=== PATIENT | male | born 1955 | race Caucasian/White ===

== ENCOUNTER → 2018-01-19 | Outpatient (CLI) | payer MEDICARE, BC | LOC: M PAIN 14:15 | DX: M96.1 Postlaminectomy syndrome, not elsewhere classified (principal); G89.29 Other chronic pain; I10 Essential (primary) hypertension; Z79.891 Long term (current) use of opiate analgesic; Z79.899 Other long term (current) drug therapy; Z88.8 Allergy status to other drugs, medicaments and biological substances | CPT/HCPCS: G0463 ==

== ENCOUNTER → 2018-02-17 | Outpatient (CLI) | payer MEDICARE, BC | LOC: M PAIN 10:45 | DX: M96.1 Postlaminectomy syndrome, not elsewhere classified (principal); G89.29 Other chronic pain; I10 Essential (primary) hypertension; Z79.891 Long term (current) use of opiate analgesic; Z79.899 Other long term (current) drug therapy; Z88.8 Allergy status to other drugs, medicaments and biological substances | CPT/HCPCS: G0463 ==

== ENCOUNTER → 2018-03-24 | Outpatient (CLI) | payer MEDICARE, BC | LOC: M PAIN 10:45 | DX: M96.1 Postlaminectomy syndrome, not elsewhere classified (principal); I10 Essential (primary) hypertension; Z79.891 Long term (current) use of opiate analgesic; Z79.899 Other long term (current) drug therapy; Z88.8 Allergy status to other drugs, medicaments and biological substances | CPT/HCPCS: G0463 ==

== ENCOUNTER → 2018-04-27 | Outpatient (CLI) | payer MEDICARE, BC | LOC: M PAIN 11:15 | DX: M96.1 Postlaminectomy syndrome, not elsewhere classified (principal); I10 Essential (primary) hypertension; Z79.891 Long term (current) use of opiate analgesic; Z79.899 Other long term (current) drug therapy; Z88.8 Allergy status to other drugs, medicaments and biological substances | CPT/HCPCS: G0463 ==

== ENCOUNTER → 2019-01-19 | Outpatient (CLI) | payer MEDICARE, BC ==
[~2019-01-19] MED LIST: ADVA230A INH; AMBI5TAB OR; CALC600T10; CALCIUM NASAL SPRAY; CELE1CAP4; CELE1CAP4 PO; HYDR25TA6 PO; LYRI75CA; MAXA10TA17 PO; MAXA5TAB; MICA40TA; OPAN10TA16; OPAN10TA16 PO; OXYC10TA56; OXYC40TA19 OR; PERC5TAB8 PO; SOMA350T OR; SPIR1CAP IN; VITACAP31 PO; VITAMIN D50000 UNT; ZEBE1TAB PO; ZEBE5TAB; [UNRECOGNIZED DRUG - CODE] PO; amrix PO; lisinopril/hctz OR
--- NOTE | 2019-02-07 01:12 | ECWPNPC ---
PATIENT NAME: JEOVANY BOWIE : 1955 GENDER: MALE VISIT DATE: 01/19/2019 DISCHARGE DATE: 01/19/19 1024 VISIT LOCKED DATE TIME: PHYSICIAN: BLAIR PEREZ RESOURCE: BLAIR PEREZ REASON FOR APPOINTMENT 1. LOW BACK PER LB HISTORY OF PRESENT ILLNESS HISTORY OF PRESENT ILLNESS: HERE FOR MEDICINE MANAGEMENT OF CHRONIC PAIN ASSOCIATED WITH POST LAMINECTOMY SYNDROME.HE IS BACK FROM [place] WHERE HE WAS BEING MANAGED BY PAIN MANAGEMENT.THEY HAVE BEEN REDUCING HIS PAIN MEDICATION IN ATTEMPTS TO REDUCE MORPHINE MEQ DAILY EXPOSURE.HE FEELS MEDICATION LOWERING WAS GOING WELL AND HE HAS REDUCED AMOUNT TAKING DAILY CONSIDERABLY BUT THIS LAST REDUCTION WAS DRAMATIC AND HE WAS SUFFERING .WE SET HIM UP ON A SLIGHTLY DIFFERENT REGIMEN AND HE IS DOING MUCH BETTER AT TODAYS VISIT.RATING PAIN VAS 4/10.REPORTING IMPROVED ACTIVITY TOLERANCE OVER THE PAST MONTH. PAIN THE PATIENT DESCRIBES THE PAIN... THE PATIENT DESCRIBES THE PAIN... FALL RISK SCREENING: SCREENING :NO FALLS REPORTED IN THE LAST YEAR CURRENT MEDICATIONS TAKING MAXALT 10 MG TABLET 1 TABLET NEEDED ONE TIME ORALLY ONCE A DAY TAKING LISINOPRIL-HYDROCHLOROTHIAZIDE 20-12.5 MG TABLET 2 TABLET ORALLY BID TAKING BISOPROLOL FUMARATE 5 MG TABLET 1 TABLET ORALLY ONCE A DAY TAKING METHOCARBAMOL 750 MG TABLET 1 TABLET ORALLY EVERY 8 HRS NEEDED TAKING PAROXETINE HCL 10 MG TABLET 1 TABLET IN THE MORNING ORALLY ONCE A DAY TAKING OXYCODONE HCL 20 MG TABLET 1 TAB ORALLY Q 8 HOURS PRN MDD3 TAKING MORPHINE SULFATE ER 15 MG TABLET EXTENDED RELEASE 12 HOUR 1 TABLET ORALLY EVERY 8 HRS NOT-TAKING MELOXICAM 7.5 MG TABLET 1 TABLET ORALLY ONCE A DAY NOT-TAKING OXYCODONE HCL ER 20 MG TABLET ER 12 HOUR ABUSE-DETERRENT 1 TABLET ORALLY Q8H MDD3 60 DAY SUPPLY CAT D CHRONIC PAIN NOT-TAKING ROXICODONE 30 MG TABLET 1 TABLET NEEDED ORALLY Q8H PRN PAIN MDD3 #82 PILLS SHOULD LAST 30 DAYS, NOTES: DUPLICATE NOT-TAKING OXYCONTIN 20 MG TABLET EXTENDED RELEASE 12 HOUR 1 TABLET ORALLY TID MDD3 NOT-TAKING ZEBETA 5 MG TABLET 1 TABLET ORALLY ONCE A DAY NOT-TAKING SPIRIVA HANDIHALER 18 MCG CAPSULE 1 CAPSULE INHALATION ONCE A DAY NOT-TAKING SOMA 350 MG TABLET 1 TABLET NEEDED ORALLY Q8H PRN MDD3 3MOS. SUPPLY CAT. D CHRONIC PAIN NOT-TAKING OXYCODONE HCL ER 40 MG TABLET ER 12 HOUR ABUSE-DETERRENT 1 TABLET ORALLY Q8H TID MDD3 THREE MOS SUPPLY CAT.D CHRONIC PAIN NOT-TAKING ADVAIR HFA 230-21 MCG/ACT AEROSOL 2 PUFFS INHALATION TWICE A DAY DISCONTINUED MS CONTIN 15 MG TABLET EXTENDED RELEASE 1 TABLET ORALLY Q8H MDD3 MEDICATION LIST REVIEWED AND RECONCILED WITH THE PATIENT PAST MEDICAL HISTORY HYPERTENSION PARALYZED DIAPHRAGM CHRONIC BACK PAIN ALLERGIES METAXALONE: RASH - ALLERGY CYCLOBENZAPRINE HCL: SEDATION - SIDE EFFECTS SURGICAL HISTORY BACK SURGERY 2008 SHOULD AND NECK SURGERY 2006 FAMILY HISTORY FATHER: MOTHER: 44 YRS 1 BROTHER(S) . 2 SON(S) . DID NOT KNOW HIS FATHER.MOTHER OF ASPHYXIATION OF VOMITBROTHER- LIVER CANCER METSSON- BACK ISSUES. SOCIAL HISTORY GENERAL: TOBACCO USE ARE YOU A: NONSMOKER. PAIN CLINIC PFS, CLERGY, PUBLIC HEALTH REFERRALS PFS REFERRAL NEEDED?NO CLERGY REFERRAL NEEDED?NO PUBLIC HEALTH REFERRAL NEEDED?NO WAS THE PROVIDER NOTIFIED OF ANY PERTINENT INFO?YES HAS THE PATIENT BEEN EDUCATED REGARDING HIS/HER PLAN OF CARE?YES HAS THE PATIENT BEEN EDUCATED REGARDING PAIN, THE RISK FOR PAIN, THE IMPORTANCE OF EFFECTIVE PAIN MANAGEMENT, AND THE PAIN ASSESSMENT PROCESS?YES ADVANCE DIRECTIVE ADVANCE DIRECTIVE DISCUSSED WITH PATIENT:YES PT DOES NOT WANT INFO AT THIS TIME [employer] [id number] MORMONISM LANGUAGE LANGUAGES SPOKEN:[place] LEARNING BARRIERS / SPECIAL NEEDS ABILITY TO UNDERSTAND VERBAL INSTRUCTIONS AVERAGE , ABILITY TO UNDERSTAND WRITTEN INSTRUCTIONS AVERAGE , KNOWLEDGE OF EDUCATIONAL NEEDS/TREATMENT PLAN AVERAGE , JAINISM? NO , LEARNING PREFERENCE NO PREFERENCE , ORIENTED TO PLAN OF CARE: PATIENT , PAIN MANAGEMENT PATIENT. REVIEWED WITH PT 04/27/18 1216 BVREVIEWED WITH PT 12/22/18 09 LAS. HOSPITALIZATION/MAJOR DIAGNOSTIC PROCEDURE NO HOSPITALIZATION HISTORY. REVIEW OF SYSTEMS REVIEWED BY: PROVIDER: BLAIR HARDING . CONSTITUTIONAL: ANY CHANGE IN YOUR MEDICAL CONDITION? NO . CHILLS NO . FEVER NO . INFECTION: DO YOU HAVE NEW INFECTIONS? NO . DO YOU HAVE HISTORY OF MRSA? NO . MUSCULOSKELETAL: ANY NEW PATTERNS OF PAIN OR NUMBNESS? NO . GASTROENTEROLOGY: ANY NEW CHANGE IN BOWEL CONTROL? NO . GENITOURINARY: ANY NEW CHANGE IN BLADDER CONTROL? NO . IS THERE A CHANCE YOU COULD BE ? NO . HEMATOLOGY/LYMPH: DO YOU TAKE ANY BLOOD THINNERS? (FOR EXAMPLE- COUMADIN, PLAVIX, AGGRENOX, PLATEL, PRADAXA, OR XARELTO) NO . WHEN WAS YOUR LAST DOSE? DATE: TIME: . NEUROLOGY: HAVE YOU FALLEN IN THE PAST 12 MONTHS? YES, PRIOR TO LAST VISIT . ANY NEW EXTREMITY NUMBNESS OR WEAKNESS? NO . CARDIOLOGY: DO YOU HAVE A PACEMAKER OR DEFIBRILLATOR? NO . RESPIRATORY: HAVE YOU BEEN SICK IN THE PAST WEEK? YES, RELOCATED FROM [place], WEATHER CHANGE URI . FEVER NO . FLU LIKE SYMPTOMS? NO . COUGH NO . INTEGUMENTARY: DO YOU HAVE ANY RASHES OR OPEN SORES? NO . ALLERGIC/IMMUNO: ARE YOU ALLERGIC TO IV DYE? NO . ANY NEW ALLERGIES? NO . PSYCHIATRIC: DO YOU HAVE THOUGHTS OF HURTING YOURSELF OR SOMEONE ELSE? NO . ARE YOU ABUSED, NEGLECTED, OR IN AN UNSAFE ENVIRONMENT? NO . ENDOCRINOLOGY: ARE YOU DIABETIC? NO . OTHER: DO YOU NEED ANY PRESCRIPTIONS? YES, MORPHINE, OXY, METHO . IF YES, PLEASE LIST: ____ . ANY NEW PROBLEMS WITH YOUR MEDICATIONS? NO . WHEN DID YOU LAST EAT? ____ . WHEN DID YOU LAST DRINK? ____ . WHAT DID YOU LAST DRINK? ____ . NAME OF PERSON DRIVING YOU HOME? ____ . DO YOU HAVE ANY OTHER QUESTIONS OR CONCERNS NO . VITAL SIGNS WT 246 LBS, HT 66 IN, BMI 39.70 INDEX, BP 170/87 MM HG, HR 61 /MIN, RR 16 /MIN, TEMP 97.9 F, OXYGEN SAT % 95, REVIEWED BY: EM. EXAMINATION GENERAL EXAMINATION: LUNGS:WHEEZING WITH DIMINISHED BREATH SOUNDS ALL LOBES BILAT.. HEART:HEART RATE REGULAR. MUSCULOSKELETAL:*, PALPATION: POSITIVE FOR PAIN OVER L/S SPINE. POSITIVE FOR PAIN OVER L/S PARSPINALS. ASSESSMENTS POST LAMINECTOMY SYNDROME - M96.1 (PRIMARY) TREATMENT POST LAMINECTOMY SYNDROME REFILL METHOCARBAMOL TABLET, 750 MG, 1 TABLET, ORALLY, 2X PER DAY IF NEEDED, 30 DAY(S), 30, REFILLS 2 REFILL OXYCODONE HCL TABLET, 20 MG, 1 TAB, ORALLY, Q 8 HOURS PRN MDD3, 30 DAY(S), 90, REFILLS 0 REFILL MORPHINE SULFATE ER TABLET EXTENDED RELEASE 12 HOUR, 15 MG, 1 TABLET, ORALLY, EVERY 8 HRS, 30 DAY(S), 90 TABLET, REFILLS 0 REFILL MS CONTIN TABLET EXTENDED RELEASE, 15 MG, 1 TABLET, ORALLY, Q8H MDD3, 30 DAY(S), 90, REFILLS 0 NOTES: ISTOP REGISTRY REVIEWED AND DEMONSTRATES COMPLLIANCE. (REF # [id number] ) BRINGS IN MEDICATIONS WHICH IS APPROPRIATE FOR WHAT WAS DISPENSED. RECENT URINE TOXICOLOGY REVIEWED. NO UNAUTHORIZED MEDICATIONS. NO ILLICIT SUBSTANCES AND PRESCRIBED MEDICATIONS WERE PRESENT. URINE TOX TODAY, RISKS AND BENEFITS OF NARCOTIC/OPIOD MEDICATIONS WERE REVIEWED WITH PATIENT - THIS INCLUDES BUT IS NOT LIMITED TO RISK OF DEPENDANCE/DEVELOPMENT OF ADDICTION, MOOD DISTURBANCE AND DEPRESSION, OSTEOPOROSIS, HORMONAL AND LABIDAL CHANGES, RESPIRATORY DEPRESSION AND . PATIENT IS ADVISED NOT TO DRIVE OR DRINK ALCOHOL WHILE ON THESE MEDICATIONS. PROCEDURE CODES FA211 ESTABILISHED PATIENT [facility] CHARGE DISPOSITION & COMMUNICATION FOLLOW UP 4-6WKS ELECTRONICALLY SIGNED BY MEHDI MARROQUIN ON 02/06/2019 AT 07:34 AM EDT DISCLAIMER : THIS IS A VISIT SUMMARY EXTRACTED FROM THE ECLINICALWORKS CHART. IT IS NOT A COPY OF THE [employer]CL[employer]KS PROGRESS NOTE. MONA
== END ==
LOC: M PAIN 09:00
PROVIDERS: ATTEND Nurse Practitioner Family
DX: M96.1 Postlaminectomy syndrome, not elsewhere classified (principal); G89.29 Other chronic pain; I10 Essential (primary) hypertension; Z79.891 Long term (current) use of opiate analgesic; Z79.899 Other long term (current) drug therapy; Z88.8 Allergy status to other drugs, medicaments and biological substances

== ENCOUNTER → 2019-02-21 | Outpatient (CLI) | payer MEDICARE, BC ==
--- NOTE | 2019-03-07 01:48 | ECWPNPC ---
PATIENT NAME: JEOVANY BOWIE : 1955 GENDER: MALE VISIT DATE: 02/21/2019 DISCHARGE DATE: 02/21/19 1240 VISIT LOCKED DATE TIME: PHYSICIAN: BLAIR PEREZ RESOURCE: BLAIR PEREZ REASON FOR APPOINTMENT 1. 4-6WKS PER BLAIR HISTORY OF PRESENT ILLNESS HISTORY OF PRESENT ILLNESS: HERE FOR MEDICINE MANAGEMENT OF CHRONIC PAIN ASSOCIATED WITH POST LAMINECTOMY SYNDROME.RATING PAIN VAS 6/10.REPORTING SLIGHT INCREASE INPAIN DUE TO INCREASE ACTIVITY OVER THE PAST MONTH.OVERALL DOING WELL WITH CURRENT CHRONIC PAIN MEDICATION. PAIN THE PATIENT DESCRIBES THE PAIN... THE PATIENT DESCRIBES THE PAIN... THE PATIENT DESCRIBES THE PAIN... FALL RISK SCREENING: SCREENING :NO FALLS REPORTED IN THE LAST YEAR CURRENT MEDICATIONS TAKING METHOCARBAMOL 750 MG TABLET 1 TABLET ORALLY 2X PER DAY IF NEEDED TAKING MS CONTIN 15 MG TABLET EXTENDED RELEASE 1 TABLET ORALLY Q8H MDD3 TAKING MAXALT 10 MG TABLET 1 TABLET NEEDED ONE TIME ORALLY ONCE A DAY TAKING LISINOPRIL-HYDROCHLOROTHIAZIDE 20-12.5 MG TABLET 2 TABLET ORALLY BID TAKING BISOPROLOL FUMARATE 5 MG TABLET 1 TABLET ORALLY ONCE A DAY TAKING PAROXETINE HCL 10 MG TABLET 1 TABLET IN THE MORNING ORALLY ONCE A DAY TAKING OXYCODONE HCL 20 MG TABLET 1 TAB ORALLY Q 8 HOURS PRN MDD3 NOT-TAKING MELOXICAM 7.5 MG TABLET 1 TABLET ORALLY ONCE A DAY NOT-TAKING OXYCODONE HCL ER 20 MG TABLET ER 12 HOUR ABUSE-DETERRENT 1 TABLET ORALLY Q8H MDD3 60 DAY SUPPLY CAT D CHRONIC PAIN NOT-TAKING ROXICODONE 30 MG TABLET 1 TABLET NEEDED ORALLY Q8H PRN PAIN MDD3 #82 PILLS SHOULD LAST 30 DAYS, NOTES: DUPLICATE NOT-TAKING OXYCONTIN 20 MG TABLET EXTENDED RELEASE 12 HOUR 1 TABLET ORALLY TID MDD3 NOT-TAKING ZEBETA 5 MG TABLET 1 TABLET ORALLY ONCE A DAY NOT-TAKING SPIRIVA HANDIHALER 18 MCG CAPSULE 1 CAPSULE INHALATION ONCE A DAY NOT-TAKING SOMA 350 MG TABLET 1 TABLET NEEDED ORALLY Q8H PRN MDD3 3MOS. SUPPLY CAT. D CHRONIC PAIN NOT-TAKING OXYCODONE HCL ER 40 MG TABLET ER 12 HOUR ABUSE-DETERRENT 1 TABLET ORALLY Q8H TID MDD3 THREE MOS SUPPLY CAT.D CHRONIC PAIN NOT-TAKING ADVAIR HFA 230-21 MCG/ACT AEROSOL 2 PUFFS INHALATION TWICE A DAY DISCONTINUED MORPHINE SULFATE ER 15 MG TABLET EXTENDED RELEASE 1 TABLET EVERY 8 HOURS ORALLY EVERY 8 HOURS MDD=3 MEDICATION LIST REVIEWED AND RECONCILED WITH THE PATIENT PAST MEDICAL HISTORY HYPERTENSION PARALYZED DIAPHRAGM CHRONIC BACK PAIN BENIGN LUNG MASS NOT SURE WHICH LUNG ALLERGIES METAXALONE: RASH - ALLERGY CYCLOBENZAPRINE HCL: SEDATION - SIDE EFFECTS SURGICAL HISTORY BACK SURGERY 2007 SHOULD AND NECK SURGERY 2006 FAMILY HISTORY FATHER: MOTHER: 44 YRS 1 BROTHER(S) . 2 SON(S) . DID NOT KNOW HIS FATHER.MOTHER OF ASPHYXIATION OF VOMITBROTHER- LIVER CANCER METS, 05/2018SON- BACK ISSUES. SOCIAL HISTORY GENERAL: TOBACCO USE ARE YOU A: NONSMOKER. PAIN CLINIC PFS, CLERGY, PUBLIC HEALTH REFERRALS PFS REFERRAL NEEDED?NO CLERGY REFERRAL NEEDED?NO PUBLIC HEALTH REFERRAL NEEDED?NO WAS THE PROVIDER NOTIFIED OF ANY PERTINENT INFO?YES HAS THE PATIENT BEEN EDUCATED REGARDING HIS/HER PLAN OF CARE?YES HAS THE PATIENT BEEN EDUCATED REGARDING PAIN, THE RISK FOR PAIN, THE IMPORTANCE OF EFFECTIVE PAIN MANAGEMENT, AND THE PAIN ASSESSMENT PROCESS?YES ADVANCE DIRECTIVE ADVANCE DIRECTIVE DISCUSSED WITH PATIENT:YES PT DOES NOT WANT INFO AT THIS TIME [employer] [id number] ORIENTAL [employer] LANGUAGE LANGUAGES SPOKEN:GUATEMALAN LEARNING BARRIERS / SPECIAL NEEDS ABILITY TO UNDERSTAND VERBAL INSTRUCTIONS AVERAGE , ABILITY TO UNDERSTAND WRITTEN INSTRUCTIONS AVERAGE , KNOWLEDGE OF EDUCATIONAL NEEDS/TREATMENT PLAN AVERAGE , JAIN? NO , LEARNING PREFERENCE NO PREFERENCE , ORIENTED TO PLAN OF CARE: PATIENT , PAIN MANAGEMENT PATIENT. REVIEWED WITH PT 04/27/18 1216 BVREVIEWED WITH PT 12/22/18 0945 LAS. HOSPITALIZATION/MAJOR DIAGNOSTIC PROCEDURE NO HOSPITALIZATION HISTORY. REVIEW OF SYSTEMS REVIEWED BY: PROVIDER: BLAIR HARDING . CONSTITUTIONAL: ANY CHANGE IN YOUR MEDICAL CONDITION? NO . CHILLS NO . FEVER NO . INFECTION: DO YOU HAVE NEW INFECTIONS? NO . DO YOU HAVE HISTORY OF MRSA? NO . MUSCULOSKELETAL: ANY NEW PATTERNS OF PAIN OR NUMBNESS? NO . GASTROENTEROLOGY: ANY NEW CHANGE IN BOWEL CONTROL? NO . GENITOURINARY: ANY NEW CHANGE IN BLADDER CONTROL? NO . IS THERE A CHANCE YOU COULD BE ? NO . HEMATOLOGY/LYMPH: DO YOU TAKE ANY BLOOD THINNERS? (FOR EXAMPLE- COUMADIN, PLAVIX, AGGRENOX, PLATEL, PRADAXA, OR XARELTO) NO . WHEN WAS YOUR LAST DOSE? DATE: TIME: . NEUROLOGY: HAVE YOU FALLEN IN THE PAST 12 MONTHS? NO . ANY NEW EXTREMITY NUMBNESS OR WEAKNESS? NO . CARDIOLOGY: DO YOU HAVE A PACEMAKER OR DEFIBRILLATOR? NO . RESPIRATORY: HAVE YOU BEEN SICK IN THE PAST WEEK? NO . FEVER NO . FLU LIKE SYMPTOMS? NO . COUGH NO . INTEGUMENTARY: DO YOU HAVE ANY RASHES OR OPEN SORES? NO . ALLERGIC/IMMUNO: ARE YOU ALLERGIC TO IV DYE? NO . ANY NEW ALLERGIES? NO . PSYCHIATRIC: DO YOU HAVE THOUGHTS OF HURTING YOURSELF OR SOMEONE ELSE? NO . ARE YOU ABUSED, NEGLECTED, OR IN AN UNSAFE ENVIRONMENT? NO . ENDOCRINOLOGY: ARE YOU DIABETIC? NO . OTHER: DO YOU NEED ANY PRESCRIPTIONS? NO . IF YES, PLEASE LIST: ____ . ANY NEW PROBLEMS WITH YOUR MEDICATIONS? NO . WHEN DID YOU LAST EAT? ____ . WHEN DID YOU LAST DRINK? ____ . WHAT DID YOU LAST DRINK? ____ . NAME OF PERSON DRIVING YOU HOME? ____ . DO YOU HAVE ANY OTHER QUESTIONS OR CONCERNS NO . VITAL SIGNS WT 247.6 LBS, HT 66 IN, BMI 39.96 INDEX, BP 205/88 MM HG, REPEAT BP 186/89 MM HG, HR 60 /MIN, RR 18 /MIN, TEMP 98.3 F, OXYGEN SAT % 94%, NA INITIALS SC 11:59, REVIEWED BY: RU LET PT REST BEFORE TAKING HIS BP AGAIN. EXAMINATION GENERAL EXAMINATION: LUNGS:WHEEZING WITH DIMINISHED BREATH SOUNDS ALL LOBES BILAT.. HEART:HEART RATE REGULAR. MUSCULOSKELETAL:*, PALPATION: POSITIVE FOR PAIN OVER L/S SPINE. POSITIVE FOR PAIN OVER L/S PARSPINALS. ASSESSMENTS POST LAMINECTOMY SYNDROME - M96.1 (PRIMARY) TREATMENT POST LAMINECTOMY SYNDROME REFILL METHOCARBAMOL TABLET, 750 MG, 1 TABLET, ORALLY, 2X PER DAY IF NEEDED, 30 DAY(S), 30, REFILLS 2 REFILL MS CONTIN TABLET EXTENDED RELEASE, 15 MG, 1 TABLET, ORALLY, Q8H MDD3, 30 DAY(S), 90, REFILLS 0 REFILL OXYCODONE HCL TABLET, 20 MG, 1 TAB, ORALLY, Q 8 HOURS PRN MDD3, 30 DAY(S), 90, REFILLS 0 NOTES: ISTOP REGISTRY REVIEWED AND DEMONSTRATES COMPLLIANCE. BRINGS IN MEDICATIONS WHICH IS APPROPRIATE FOR WHAT WAS DISPENSED. RECENT URINE TOXICOLOGY REVIEWED. NO UNAUTHORIZED MEDICATIONS. NO ILLICIT SUBSTANCES AND PRESCRIBED MEDICATIONS WERE PRESENT. , [facility] NARCOTIC AGREEMENT WAS REVIEWED UPDATEDAND SIGNED TODAY BY THE PATIENT. SEE ATTACHED DOCUMENT FOR FULL DETAILS; SPECIFIC ISSUES WERE REVIEWED: 1) KEEP PAIN MEDS IN THEIR ORIGINAL BOTTLES AND ANY WEEKLY PLANNERS ARE TO BE BROUGHT TO THE PAIN CENTER AT EVERY VISIT. 2) THE PATIENT IS NOT TO INCREASE DOSING OR TIMING OF THEIR PAIN MEDICATION WITHOUT SPECIFIC DIRECTION OF THEIR PAIN CENTERPROVIDER (NOT ER OR OTHER PROVIDERS). 3) ALL PAIN MEDS ARE TO BE KEPT SECURED, IN A LOCKED BOX. 4) NO PAIN MEDS ARE TO BE SHARED WITH ANY OTHER PERSON FOR ANY REASON. 5) NO PAIN MEDS MAY BE TAKEN FROM ANY FRIENDS OR RELATIVES FOR ANY REASON 6) NO MEDS OR SUBSTANCES WHICH ARE NOT LEGAL ARE TO BE USED- NO MARIJUANA, NO COCAINE, AMPHETAMINES, HEROIN, OR OTHERS ARE EVER TO BE USED. 7)URINE TESTING IS DONE TO ACCOUNT FOR MEDS AND SUBSTANCES BEING TAKEN AND WILL BE DONE RANDOMLY. PROCEDURE CODES FA211 ESTABILISHED PATIENT [facility] CHARGE DISPOSITION & COMMUNICATION FOLLOW UP 2 MONTHS ELECTRONICALLY SIGNED BY MEHDI MARROQUIN ON 03/06/2019 AT 09:11 AM EDT DISCLAIMER : THIS IS A VISIT SUMMARY EXTRACTED FROM THE ECLINICALWORKS CHART. IT IS NOT A COPY OF THE ECLINICALWORKS PROGRESS NOTE. MONA
== END ==
LOC: M PAIN 11:45
PROVIDERS: ATTEND Nurse Practitioner Family
DX: M96.1 Postlaminectomy syndrome, not elsewhere classified (principal); I10 Essential (primary) hypertension; Z79.891 Long term (current) use of opiate analgesic; Z79.899 Other long term (current) drug therapy; Z88.8 Allergy status to other drugs, medicaments and biological substances

== ENCOUNTER → 2019-04-18 | Outpatient (CLI) | payer MEDICARE, BC ==
--- NOTE | 2019-05-03 02:01 | ECWPNPC ---
PATIENT NAME: JEOVANY BOWIE : 1955 GENDER: MALE VISIT DATE: 04/18/2019 DISCHARGE DATE: 04/18/19 1256 VISIT LOCKED DATE TIME: PHYSICIAN: BLAIR PEREZ RESOURCE: BLAIR PEREZ REASON FOR APPOINTMENT 1. MEDICARE/BACK MEDS HISTORY OF PRESENT ILLNESS HISTORY OF PRESENT ILLNESS: HERE FOR MEDICINE MANAGEMENT OF CHRONIC PAIN ASSOCIATED WITH POST LAMINECTOMY SYNDROME.RATING PAIN VAS 7/10.OVERALL DOING WELL WITH CURRENT CHRONIC PAIN MEDICATION. PAIN THE PATIENT DESCRIBES THE PAIN... THE PATIENT DESCRIBES THE PAIN... THE PATIENT DESCRIBES THE PAIN... THE PATIENT DESCRIBES THE PAIN... FALL RISK SCREENING: SCREENING :NO FALLS REPORTED IN THE LAST YEAR CURRENT MEDICATIONS TAKING MAXALT 10 MG TABLET 1 TABLET NEEDED ONE TIME ORALLY ONCE A DAY TAKING LISINOPRIL-HYDROCHLOROTHIAZIDE 20-12.5 MG TABLET 2 TABLET ORALLY BID TAKING BISOPROLOL FUMARATE 5 MG TABLET 1 TABLET ORALLY ONCE A DAY TAKING PAROXETINE HCL 10 MG TABLET 1 TABLET IN THE MORNING ORALLY ONCE A DAY TAKING METHOCARBAMOL 750 MG TABLET 1 TABLET ORALLY 2X PER DAY IF NEEDED TAKING MS CONTIN 15 MG TABLET EXTENDED RELEASE 1 TABLET ORALLY Q8H MDD3 TAKING OXYCODONE HCL 20 MG TABLET 1 TAB ORALLY Q 8 HOURS PRN MDD3 NOT-TAKING MELOXICAM 7.5 MG TABLET 1 TABLET ORALLY ONCE A DAY NOT-TAKING OXYCODONE HCL ER 20 MG TABLET ER 12 HOUR ABUSE-DETERRENT 1 TABLET ORALLY Q8H MDD3 60 DAY SUPPLY CAT D CHRONIC PAIN NOT-TAKING ROXICODONE 30 MG TABLET 1 TABLET NEEDED ORALLY Q8H PRN PAIN MDD3 #82 PILLS SHOULD LAST 30 DAYS, NOTES: DUPLICATE NOT-TAKING OXYCONTIN 20 MG TABLET EXTENDED RELEASE 12 HOUR 1 TABLET ORALLY TID MDD3 NOT-TAKING ZEBETA 5 MG TABLET 1 TABLET ORALLY ONCE A DAY NOT-TAKING SPIRIVA HANDIHALER 18 MCG CAPSULE 1 CAPSULE INHALATION ONCE A DAY NOT-TAKING SOMA 350 MG TABLET 1 TABLET NEEDED ORALLY Q8H PRN MDD3 3MOS. SUPPLY CAT. D CHRONIC PAIN NOT-TAKING OXYCODONE HCL ER 40 MG TABLET ER 12 HOUR ABUSE-DETERRENT 1 TABLET ORALLY Q8H TID MDD3 THREE MOS SUPPLY CAT.D CHRONIC PAIN NOT-TAKING ADVAIR HFA 230-21 MCG/ACT AEROSOL 2 PUFFS INHALATION TWICE A DAY MEDICATION LIST REVIEWED AND RECONCILED WITH THE PATIENT PAST MEDICAL HISTORY HYPERTENSION PARALYZED DIAPHRAGM CHRONIC BACK PAIN BENIGN LUNG MASS NOT SURE WHICH LUNG ALLERGIES METAXALONE: RASH - ALLERGY CYCLOBENZAPRINE HCL: SEDATION - SIDE EFFECTS SURGICAL HISTORY BACK SURGERY 2008 SHOULD AND NECK SURGERY 2007 FAMILY HISTORY FATHER: MOTHER: 44 YRS 1 BROTHER(S) . 2 SON(S) . DID NOT KNOW HIS FATHER.MOTHER OF ASPHYXIATION OF VOMITBROTHER- LIVER CANCER METS, 05/2018SON- BACK ISSUES. SOCIAL HISTORY GENERAL: TOBACCO USE ARE YOU A: NONSMOKER. PAIN CLINIC PFS, CLERGY, PUBLIC HEALTH REFERRALS PFS REFERRAL NEEDED?NO CLERGY REFERRAL NEEDED?NO PUBLIC HEALTH REFERRAL NEEDED?NO WAS THE PROVIDER NOTIFIED OF ANY PERTINENT INFO?YES HAS THE PATIENT BEEN EDUCATED REGARDING HIS/HER PLAN OF CARE?YES HAS THE PATIENT BEEN EDUCATED REGARDING PAIN, THE RISK FOR PAIN, THE IMPORTANCE OF EFFECTIVE PAIN MANAGEMENT, AND THE PAIN ASSESSMENT PROCESS?YES ADVANCE DIRECTIVE ADVANCE DIRECTIVE DISCUSSED WITH PATIENT:YES PT DOES NOT WANT INFO AT THIS TIME [employer] [id number] LANGU[employer] LANGUAGES SPOKEN:SUDANESE LEARNING BARRIERS / SPECIAL NEEDS ABILITY TO UNDERSTAND VERBAL INSTRUCTIONS AVERAGE , ABILITY TO UNDERSTAND WRITTEN INSTRUCTIONS AVERAGE , KNOWLEDGE OF EDUCATIONAL NEEDS/TREATMENT PLAN AVERAGE , BUDDHISM? NO , LEARNING PREFERENCE NO PREFERENCE , ORIENTED TO PLAN OF CARE: PATIENT , PAIN MANAGEMENT PATIENT. REVIEWED WITH PT 04/27/18 1216 BVREVIEWED WITH PT 12/22/18 0945 LASREVIEWED WITH PATIENT 04/18/19. HOSPITALIZATION/MAJOR DIAGNOSTIC PROCEDURE NO HOSPITALIZATION HISTORY. REVIEW OF SYSTEMS REVIEWED BY: PROVIDER: BLAIR HARDING . CONSTITUTIONAL: ANY CHANGE IN YOUR MEDICAL CONDITION? NO . CHILLS NO . FEVER NO . INFECTION: DO YOU HAVE NEW INFECTIONS? NO . DO YOU HAVE HISTORY OF MRSA? NO . MUSCULOSKELETAL: ANY NEW PATTERNS OF PAIN OR NUMBNESS? NO . GASTROENTEROLOGY: ANY NEW CHANGE IN BOWEL CONTROL? NO . GENITOURINARY: ANY NEW CHANGE IN BLADDER CONTROL? NO . IS THERE A CHANCE YOU COULD BE ? NO . HEMATOLOGY/LYMPH: DO YOU TAKE ANY BLOOD THINNERS? (FOR EXAMPLE- COUMADIN, PLAVIX, AGGRENOX, PLATEL, PRADAXA, OR XARELTO) NO . WHEN WAS YOUR LAST DOSE? DATE: TIME: . NEUROLOGY: HAVE YOU FALLEN IN THE PAST 12 MONTHS? NO . ANY NEW EXTREMITY NUMBNESS OR WEAKNESS? NO . CARDIOLOGY: DO YOU HAVE A PACEMAKER OR DEFIBRILLATOR? NO . RESPIRATORY: HAVE YOU BEEN SICK IN THE PAST WEEK? NO . FEVER NO . FLU LIKE SYMPTOMS? NO . COUGH NO . INTEGUMENTARY: DO YOU HAVE ANY RASHES OR OPEN SORES? NO . ALLERGIC/IMMUNO: ARE YOU ALLERGIC TO IV DYE? NO . ANY NEW ALLERGIES? NO . PSYCHIATRIC: DO YOU HAVE THOUGHTS OF HURTING YOURSELF OR SOMEONE ELSE? NO . ARE YOU ABUSED, NEGLECTED, OR IN AN UNSAFE ENVIRONMENT? NO . ENDOCRINOLOGY: ARE YOU DIABETIC? NO . OTHER: DO YOU NEED ANY PRESCRIPTIONS? NO . IF YES, PLEASE LIST: ____ . ANY NEW PROBLEMS WITH YOUR MEDICATIONS? NO . WHEN DID YOU LAST EAT? ____ . WHEN DID YOU LAST DRINK? ____ . WHAT DID YOU LAST DRINK? ____ . NAME OF PERSON DRIVING YOU HOME? ____ . DO YOU HAVE ANY OTHER QUESTIONS OR CONCERNS NO . VITAL SIGNS WT 250.8 LBS, HT 66 IN, BMI 40.48 INDEX, BP 176/86 MM HG, HR 59 /MIN, RR 18 /MIN, TEMP 97.6 F, OXYGEN SAT % 93%, NA INITIALS SC 12:04, REVIEWED BY: KG. EXAMINATION GENERAL EXAMINATION: LUNGS:WHEEZING WITH DIMINISHED BREATH SOUNDS ALL LOBES BILAT.. HEART:HEART RATE REGULAR. MUSCULOSKELETAL:*, PALPATION: POSITIVE FOR PAIN OVER L/S SPINE. POSITIVE FOR PAIN OVER L/S PARSPINALS. ASSESSMENTS POST LAMINECTOMY SYNDROME - M96.1 (PRIMARY) TREATMENT POST LAMINECTOMY SYNDROME REFILL MS CONTIN TABLET EXTENDED RELEASE, 15 MG, 1 TABLET, ORALLY, Q8H MDD3, 30 DAY(S), 90, REFILLS 0 REFILL METHOCARBAMOL TABLET, 750 MG, 1 TABLET, ORALLY, 2X PER DAY IF NEEDED, 30 DAY(S), 30, REFILLS 2 REFILL OXYCODONE HCL TABLET, 20 MG, 1 TAB, ORALLY, Q 8 HOURS PRN MDD3, 30 DAY(S), 90, REFILLS 0 NOTES: ISTOP REGISTRY REVIEWED AND DEMONSTRATES COMPLLIANCE. BRINGS IN MEDICATIONS WHICH IS APPROPRIATE FOR WHAT WAS DISPENSED. RECENT URINE TOXICOLOGY REVIEWED. NO UNAUTHORIZED MEDICATIONS. NO ILLICIT SUBSTANCES AND PRESCRIBED MEDICATIONS WERE PRESENT. , RISKS AND BENEFITS OF NARCOTIC/OPIOD MEDICATIONS WERE REVIEWED WITH PATIENT - THIS INCLUDES BUT IS NOT LIMITED TO RISK OF DEPENDANCE/DEVELOPMENT OF ADDICTION, MOOD DISTURBANCE AND DEPRESSION, OSTEOPOROSIS, HORMONAL AND LABIDAL CHANGES, RESPIRATORY DEPRESSION AND . PATIENT IS ADVISED NOT TO DRIVE OR DRINK ALCOHOL WHILE ON THESE MEDICATIONS. DISPOSITION & COMMUNICATION FOLLOW UP 4 WEEKS (REASON: MED MGMNT) ELECTRONICALLY SIGNED BY MEHDI MARROQUIN ON 05/02/2019 AT 03:45 PM EDT DISCLAIMER : THIS IS A VISIT SUMMARY EXTRACTED FROM THE ECLINICALWORKS CHART. IT IS NOT A COPY OF THE [employer] Interactive[employer]ICAL[employer]KS PROGRESS NOTE. MONA
== END ==
LOC: M PAIN 11:45
PROVIDERS: ATTEND Nurse Practitioner Family
DX: M96.1 Postlaminectomy syndrome, not elsewhere classified (principal); I10 Essential (primary) hypertension; Z88.8 Allergy status to other drugs, medicaments and biological substances; E66.01 Morbid (severe) obesity due to excess calories; Z68.41 Body mass index [BMI] 40.0-44.9, adult; Z79.891 Long term (current) use of opiate analgesic; Z79.899 Other long term (current) drug therapy

== ENCOUNTER → 2019-05-16 | Outpatient (CLI) | payer MEDICARE, BC | LOC: M PAIN 10:30 | PROVIDERS: ATTEND Nurse Practitioner Family | DX: M96.1 Postlaminectomy syndrome, not elsewhere classified (principal); I10 Essential (primary) hypertension; Z79.891 Long term (current) use of opiate analgesic; Z79.899 Other long term (current) drug therapy; Z88.8 Allergy status to other drugs, medicaments and biological substances ==

== ENCOUNTER → 2019-06-16 | Outpatient (CLI) | payer MEDICARE, BC ==
--- NOTE | 2019-06-28 04:08 | ECWPNPC ---
PATIENT NAME: JEOVANY BOWIE : 1955 GENDER: MALE VISIT DATE: 06/16/2019 DISCHARGE DATE: 06/16/19 1020 VISIT LOCKED DATE TIME: PHYSICIAN: BLAIR PEREZ RESOURCE: BLAIR PEREZ REASON FOR APPOINTMENT 1. MED MGMNT HISTORY OF PRESENT ILLNESS HISTORY OF PRESENT ILLNESS: HERE FOR MEDICINE MANAGEMENT OF CHRONIC PAIN ASSOCIATED WITH POST LAMINECTOMY SYNDROME.RATING PAIN VAS 5-9/10.OVERALL DOING WELL WITH CURRENT CHRONIC PAIN MEDICATION. PAIN THE PATIENT DESCRIBES THE PAIN... THE PATIENT DESCRIBES THE PAIN... THE PATIENT DESCRIBES THE PAIN... THE PATIENT DESCRIBES THE PAIN... THE PATIENT DESCRIBES THE PAIN... THE PATIENT DESCRIBES THE PAIN... PAIN THE PATIENT DESCRIBES THE PAIN... THE PATIENT DESCRIBES THE PAIN... THE PATIENT DESCRIBES THE PAIN... THE PATIENT DESCRIBES THE PAIN... THE PATIENT DESCRIBES THE PAIN... THE PATIENT DESCRIBES THE PAIN... FALL RISK SCREENING: SCREENING :NO FALLS REPORTED IN THE LAST YEAR CURRENT MEDICATIONS TAKING MAXALT 10 MG TABLET 1 TABLET NEEDED ONE TIME ORALLY ONCE A DAY TAKING LISINOPRIL-HYDROCHLOROTHIAZIDE 20-12.5 MG TABLET 2 TABLET ORALLY BID TAKING BISOPROLOL FUMARATE 5 MG TABLET 1 TABLET ORALLY ONCE A DAY TAKING PAROXETINE HCL 10 MG TABLET 1 TABLET IN THE MORNING ORALLY ONCE A DAY TAKING MS CONTIN 15 MG TABLET EXTENDED RELEASE 1 TABLET ORALLY Q8H MDD3 TAKING METHOCARBAMOL 750 MG TABLET 1 TABLET ORALLY 2X PER DAY IF NEEDED TAKING OXYCODONE HCL 20 MG TABLET 1 TAB ORALLY Q 8 HOURS PRN MDD3 NOT-TAKING MELOXICAM 7.5 MG TABLET 1 TABLET ORALLY ONCE A DAY NOT-TAKING OXYCODONE HCL ER 20 MG TABLET ER 12 HOUR ABUSE-DETERRENT 1 TABLET ORALLY Q8H MDD3 60 DAY SUPPLY CAT D CHRONIC PAIN NOT-TAKING ROXICODONE 30 MG TABLET 1 TABLET NEEDED ORALLY Q8H PRN PAIN MDD3 #82 PILLS SHOULD LAST 30 DAYS, NOTES: DUPLICATE NOT-TAKING OXYCONTIN 20 MG TABLET EXTENDED RELEASE 12 HOUR 1 TABLET ORALLY TID MDD3 NOT-TAKING ZEBETA 5 MG TABLET 1 TABLET ORALLY ONCE A DAY NOT-TAKING SPIRIVA HANDIHALER 18 MCG CAPSULE 1 CAPSULE INHALATION ONCE A DAY NOT-TAKING SOMA 350 MG TABLET 1 TABLET NEEDED ORALLY Q8H PRN MDD3 3MOS. SUPPLY CAT. D CHRONIC PAIN NOT-TAKING OXYCODONE HCL ER 40 MG TABLET ER 12 HOUR ABUSE-DETERRENT 1 TABLET ORALLY Q8H TID MDD3 THREE MOS SUPPLY CAT.D CHRONIC PAIN NOT-TAKING ADVAIR HFA 230-21 MCG/ACT AEROSOL 2 PUFFS INHALATION TWICE A DAY MEDICATION LIST REVIEWED AND RECONCILED WITH THE PATIENT PAST MEDICAL HISTORY HYPERTENSION PARALYZED DIAPHRAGM CHRONIC BACK PAIN BENIGN LUNG MASS NOT SURE WHICH LUNG ALLERGIES METAXALONE: RASH - ALLERGY CYCLOBENZAPRINE HCL: SEDATION - SIDE EFFECTS SURGICAL HISTORY BACK SURGERY 2008 SHOULD AND NECK SURGERY 2006 FAMILY HISTORY FATHER: MOTHER: 44 YRS 1 BROTHER(S) . 2 SON(S) . DID NOT KNOW HIS FATHER.MOTHER OF ASPHYXIATION OF VOMITBROTHER- LIVER CANCER METS, 05/2018SON- BACK ISSUES. SOCIAL HISTORY GENERAL: TOBACCO USE ARE YOU A: NONSMOKER. PAIN CLINIC PFS, CLERGY, PUBLIC HEALTH REFERRALS PFS REFERRAL NEEDED?NO CLERGY REFERRAL NEEDED?NO PUBLIC HEALTH REFERRAL NEEDED?NO WAS THE PROVIDER NOTIFIED OF ANY PERTINENT INFO?YES HAS THE PATIENT BEEN EDUCATED REGARDING HIS/HER PLAN OF CARE?YES HAS THE PATIENT BEEN EDUCATED REGARDING PAIN, THE RISK FOR PAIN, THE IMPORTANCE OF EFFECTIVE PAIN MANAGEMENT, AND THE PAIN ASSESSMENT PROCESS?YES ADVANCE DIRECTIVE ADVANCE DIRECTIVE DISCUSSED WITH PATIENT:YES PT DOES NOT WANT INFO AT THIS TIME PROTESTANT [id number] LANGUAGE LANGUAGES SPOKEN:KYRGYZ LEARNING BARRIERS / SPECIAL NEEDS ABILITY TO UNDERSTAND VERBAL INSTRUCTIONS AVERAGE , ABILITY TO UNDERSTAND WRITTEN INSTRUCTIONS AVERAGE , KNOWLEDGE OF EDUCATIONAL NEEDS/TREATMENT PLAN AVERAGE , JEWISH? NO , LEARNING PREFERENCE NO PREFERENCE , ORIENTED TO PLAN OF CARE: PATIENT , PAIN MANAGEMENT PATIENT. REVIEWED WITH PT 04/27/18 1216 BVREVIEWED WITH PT 12/22/18 0945 LASREVIEWED WITH PATIENT 04/18/19 REVIEWED WITH PT05/16/19 1103 NLJ. HOSPITALIZATION/MAJOR DIAGNOSTIC PROCEDURE NO HOSPITALIZATION HISTORY. REVIEW OF SYSTEMS REVIEWED BY: PROVIDER: BLAIR HARDING . CONSTITUTIONAL: ANY CHANGE IN YOUR MEDICAL CONDITION? NO . CHILLS NO . FEVER NO . INFECTION: DO YOU HAVE NEW INFECTIONS? NO . DO YOU HAVE HISTORY OF MRSA? NO . MUSCULOSKELETAL: ANY NEW PATTERNS OF PAIN OR NUMBNESS? NO . GASTROENTEROLOGY: ANY NEW CHANGE IN BOWEL CONTROL? NO . GENITOURINARY: ANY NEW CHANGE IN BLADDER CONTROL? NO . IS THERE A CHANCE YOU COULD BE ? NO . HEMATOLOGY/LYMPH: DO YOU TAKE ANY BLOOD THINNERS? (FOR EXAMPLE- COUMADIN, PLAVIX, AGGRENOX, PLATEL, PRADAXA, OR XARELTO) NO . WHEN WAS YOUR LAST DOSE? DATE: TIME: . NEUROLOGY: HAVE YOU FALLEN IN THE PAST 12 MONTHS? NO . ANY NEW EXTREMITY NUMBNESS OR WEAKNESS? NO . CARDIOLOGY: DO YOU HAVE A PACEMAKER OR DEFIBRILLATOR? NO . RESPIRATORY: HAVE YOU BEEN SICK IN THE PAST WEEK? NO . FEVER NO . FLU LIKE SYMPTOMS? NO . COUGH NO . INTEGUMENTARY: DO YOU HAVE ANY RASHES OR OPEN SORES? NO . ALLERGIC/IMMUNO: ARE YOU ALLERGIC TO IV DYE? NO . ANY NEW ALLERGIES? NO . PSYCHIATRIC: DO YOU HAVE THOUGHTS OF HURTING YOURSELF OR SOMEONE ELSE? NO . ARE YOU ABUSED, NEGLECTED, OR IN AN UNSAFE ENVIRONMENT? NO . ENDOCRINOLOGY: ARE YOU DIABETIC? NO . OTHER: DO YOU NEED ANY PRESCRIPTIONS? MORPHINE/OXYCODONE . IF YES, PLEASE LIST: ____ . ANY NEW PROBLEMS WITH YOUR MEDICATIONS? NO . WHEN DID YOU LAST EAT? ____ . WHEN DID YOU LAST DRINK? ____ . WHAT DID YOU LAST DRINK? ____ . NAME OF PERSON DRIVING YOU HOME? ____ . DO YOU HAVE ANY OTHER QUESTIONS OR CONCERNS NO . VITAL SIGNS WT 253.0 LBS, HT 66 IN, BMI 40.83 INDEX, BP 197/81 MM HG, HR 63 /MIN, RR 18 /MIN, TEMP 96.1 F, OXYGEN SAT % 92%, NA INITIALS AW 0944, REVIEWED BY: EM. EXAMINATION GENERAL EXAMINATION: LUNGS:WHEEZING WITH DIMINISHED BREATH SOUNDS ALL LOBES BILAT.. HEART:HEART RATE REGULAR. MUSCULOSKELETAL:*, PALPATION: POSITIVE FOR PAIN OVER L/S SPINE. POSITIVE FOR PAIN OVER L/S PARSPINALS. ASSESSMENTS POST LAMINECTOMY SYNDROME - M96.1 (PRIMARY) TREATMENT POST LAMINECTOMY SYNDROME REFILL MS CONTIN TABLET EXTENDED RELEASE, 15 MG, 1 TABLET, ORALLY, Q8H MDD3 3 MOS SUPPLY CAT D CHRONIC PAIN, 90 DAY(S), 270, REFILLS 0 REFILL OXYCODONE HCL TABLET, 20 MG, 1 TAB, ORALLY, Q8H PRN PAIN MDD3 90 DAY SUPPLY CAT D CHRONIC PAIN, 90 DAY(S), 270, REFILLS 0 NOTES: ISTOP REGISTRY REVIEWED AND DEMONSTRATES COMPLLIANCE. BRINGS IN MEDICATIONS WHICH IS APPROPRIATE FOR WHAT WAS DISPENSED. RECENT URINE TOXICOLOGY REVIEWED. NO UNAUTHORIZED MEDICATIONS. NO ILLICIT SUBSTANCES AND PRESCRIBED MEDICATIONS WERE PRESENT. , RISKS OF NARCOTIC/OPIOD MEDICATIONS INCLUDES BUT IS NOT LIMITED TO RISK OF DEPENDANCE/DEVELOPMENT OF ADDICTION, MOOD DISTURBANCE AND DEPRESSION, OSTEOPOROSIS, HORMONAL AND LABIDAL CHANGES, RESPIRATORY DEPRESSION AND . PATIENT IS ADVISED NOT TO DRIVE OR DRINK ALCOHOL WHILE ON THESE MEDICATIONS. PROCEDURE CODES [id number] ESTABILISHED PATIENT [facility] CHARGE DISPOSITION & COMMUNICATION FOLLOW UP WILL CALL IN SPRING (REASON: MED MGMNT) ELECTRONICALLY SIGNED BY MEHDI MARRQOUIN ON 06/27/2019 AT 02:31 PM EST DISCLAIMER : THIS IS A VISIT SUMMARY EXTRACTED FROM THE [employer] CHART. IT IS NOT A COPY OF THE [employer] PROGRESS NOTE. MONA
== END ==
LOC: M PAIN 09:30
PROVIDERS: ATTEND Nurse Practitioner Family
DX: M96.1 Postlaminectomy syndrome, not elsewhere classified (principal); I10 Essential (primary) hypertension; E66.01 Morbid (severe) obesity due to excess calories; Z68.41 Body mass index [BMI] 40.0-44.9, adult; Z88.8 Allergy status to other drugs, medicaments and biological substances; Z79.891 Long term (current) use of opiate analgesic; Z79.899 Other long term (current) drug therapy

== ENCOUNTER → 2020-02-12 | Outpatient (CLI) | payer MEDICARE, BC ==
--- NOTE | 2020-02-16 01:59 | ECWPNPC ---
PATIENT NAME: JEOVNAY BOWIE : 1955 GENDER: MALE VISIT DATE: 02/12/2020 DISCHARGE DATE: 02/12/20 1129 VISIT LOCKED DATE TIME: PHYSICIAN: BLAIR PEREZ RESOURCE: BLAIR PEREZ REASON FOR APPOINTMENT 1. MED MGMT HISTORY OF PRESENT ILLNESS GENERAL: HERE FOR FOLLOW-UP OF CHRONIC LOW BACK PAIN AND BILATERAL HIP PAIN. FINDS CURRENT CHRONIC PAIN MEDICATION HELPFUL AT REDUCING PAIN AND KEEPING HIM FUNCTIONAL. DENIES ADVERSE EFFECTS OF MEDICATION. DISCUSSED TREATMENT PLAN. -. FALL RISK SCREENING: SCREENING :ONE FALL WITHOUT INJURY IN THE PAST YEAR PAIN SCREENING: PATIENT HAS A COMPLAINT OF ACUTE OR CHRONIC PAIN :YES LOCATION OF PAIN:LOW BACK, LEFT HIP, RIGHT HIP INTENSITY OF PAIN (SCALE OF 1 TO 10):7 WHAT DOES YOUR PAIN FEEL LIKE:ACHING, BURNING, CONTINOUS, STABBING DURATION:CONTINOUS PAIN IS INCREASED BY:PROLONGED STANDING, OTHERS SQUATING, BENDING OVER , LIFTING PAIN IS DECREASED BY:USE OF PAIN MEDICATIONS, OTHERS HOT TUBS, SOAKING NURSING NOTE: -. PAIN CENTER INTAKE QUESTIONS: DO YOU HAVE A HISTORY OF MRSA? :NO DO YOU TAKE A BLOOD THINNERS? :NO DO YOU HAVE ANY BLEEDING DISORDERS? :NO ANY NEW NUMBNESS OR WEAKNESS IN YOUR LEGS OR ARMS? :NO ANY PACEMAKER,DEFIBRILLATOR, OR DORSAL COLUMN STIMULATOR? :NO DO YOU HAVE ANY RASHES OR OPEN SORES? :NO ARE YOU ALLERGIC TO IV DYE? :NO ARE YOU DIABETIC? :NO ANY NEW PROBLEMS WITH YOUR MEDICATIONS? :NO HAVE YOU RECEIVED A VACCINE IN THE PAST 30 DAYS? :NO DO YOU PLAN TO RECEIVE A VACCINE IN THE NEXT 21 DAYS? :NO DO YOU NEED ANY PRESCRIPTION? :YES MS CONTIN, OXYCODONE DO YOU TAKE ANY IMMUNOSUPPRESSIVE MEDICATIONS? :NO ANY HISTORY OF SEIZURES? :NO ANY HISTORY OF CARDIAC ISSUES OR EVENTS? :NO DO YOU HAVE SLEEP APNEA? :NO ANY RECENT HEAD INJURY? :NO DO YOU HAVE ANY NEW INFECTIONS? :NO IS THERE A CHANCE YOU COULD BE ? :NO ARE YOU BREAST FEEDING? :NO CURRENT MEDICATIONS TAKING MAXALT 10 MG TABLET 1 TABLET NEEDED ONE TIME ORALLY ONCE A DAY TAKING LISINOPRIL-HYDROCHLOROTHIAZIDE 20-12.5 MG TABLET 1 TABLET ORALLY BID TAKING BISOPROLOL FUMARATE 5 MG TABLET 1 TABLET ORALLY ONCE A DAY TAKING PAROXETINE HCL 10 MG TABLET 1 TABLET IN THE MORNING ORALLY ONCE A DAY TAKING METHOCARBAMOL 750 MG TABLET 1 TABLET ORALLY 2X PER DAY IF NEEDED TAKING MS CONTIN 15 MG TABLET EXTENDED RELEASE 1 TABLET ORALLY Q8H MDD3 3 MOS SUPPLY CAT D CHRONIC PAIN TAKING OXYCODONE HCL 20 MG TABLET 1 TAB ORALLY Q8H PRN PAIN MDD3 90 DAY SUPPLY CAT D CHRONIC PAIN NOT-TAKING MELOXICAM 7.5 MG TABLET 1 TABLET ORALLY ONCE A DAY NOT-TAKING OXYCODONE HCL ER 20 MG TABLET ER 12 HOUR ABUSE-DETERRENT 1 TABLET ORALLY Q8H MDD3 60 DAY SUPPLY CAT D CHRONIC PAIN NOT-TAKING ROXICODONE 30 MG TABLET 1 TABLET NEEDED ORALLY Q8H PRN PAIN MDD3 #82 PILLS SHOULD LAST 30 DAYS, NOTES: DUPLICATE NOT-TAKING OXYCONTIN 20 MG TABLET EXTENDED RELEASE 12 HOUR 1 TABLET ORALLY TID MDD3 NOT-TAKING ZEBETA 5 MG TABLET 1 TABLET ORALLY ONCE A DAY NOT-TAKING SPIRIVA HANDIHALER 18 MCG CAPSULE 1 CAPSULE INHALATION ONCE A DAY NOT-TAKING SOMA 350 MG TABLET 1 TABLET NEEDED ORALLY Q8H PRN MDD3 3MOS. SUPPLY CAT. D CHRONIC PAIN NOT-TAKING OXYCODONE HCL ER 40 MG TABLET ER 12 HOUR ABUSE-DETERRENT 1 TABLET ORALLY Q8H TID MDD3 THREE MOS SUPPLY CAT.D CHRONIC PAIN NOT-TAKING ADVAIR HFA 230-21 MCG/ACT AEROSOL 2 PUFFS INHALATION TWICE A DAY MEDICATION LIST REVIEWED AND RECONCILED WITH THE PATIENT PAST MEDICAL HISTORY HYPERTENSION PARALYZED DIAPHRAGM CHRONIC BACK PAIN BENIGN LUNG MASS NOT SURE WHICH LUNG ALLERGIES METAXALONE: RASH - ALLERGY CYCLOBENZAPRINE HCL: SEDATION - SIDE EFFECTS SURGICAL HISTORY BACK SURGERY 2007 SHOULD AND NECK SURGERY 2006 FAMILY HISTORY FATHER: MOTHER: 44 YRS 1 BROTHER(S) . 2 SON(S) . DID NOT KNOW HIS FATHER.MOTHER OF ASPHYXIATION OF VOMITBROTHER- LIVER CANCER METS, 05/2018SON- BACK ISSUES. SOCIAL HISTORY GENERAL: TOBACCO USE ARE YOU A: NONSMOKER. LATEX QUESTIONNAIRE LATEX ALLERGY : HAVE YOU EVER DEVELOPED ANY TYPE OF REACTION AFTER HANDLING LATEX PRODUCTS SUCH RUBBER GLOVES, CONDOMS, DIAPHRAGMS, BALLOONS, SOCKS, OR UNDERWEAR?NO LATEX ALLERGY : HAVE YOU EVER DEVELOPED ANY TYPE OF REACTION DURING OR AFTER DENTAL APPOINTMENT, VAGINAL/RECTAL EXAMINATION, SURGICAL PROCEDURE, OR ANY OTHER EXPOSURE?NO LATEX RISK : HAVE YOU EVER HAD ANY DIFFICULTY BREATHING OR HIVES AFTER EATING OR HANDLING ANY FRUITS, OR VEGETABLES; SUCH KIWI, BANANAS, STONE FRUITS, OR CHESTNUTSNO LATEX RISK : DO YOU HAVE A PREVIOUS PERSONAL HISTORY OF MORE THAN NINE SURGERIES, SPINA BIFIDA, OR REPEATED CATHERIZATIONS? NO LATEX RISK : ARE YOU FREQUENTLY EXPOSED TO LATEX PRODUCTS IN YOUR OCCUPATION?NO DATE ASKED : 02/12/2020 ALCOHOL SCREENING DID YOU HAVE A DRINK CONTAINING ALCOHOL IN THE PAST YEAR?NO POINTS0 INTERPRETATIONNEGATIVE RECREATIONAL DRUG USE DRUG USE?NO PATIENT DENIES ABUSE OR MISSUSED OF ANY MEDICATION DENIES PATIENT DENIES USE OF ANY ILLEGAL SUBSTANCE INCLUDING MARIJUANA OR COCAINE DENIES LATTER-DAY [id number] [employer] LANGUAGE LANGUAGES SPOKEN:TURKISH LEARNING BARRIERS / SPECIAL NEEDS ABILITY TO UNDERSTAND VERBAL INSTRUCTIONS AVERAGE , ABILITY TO UNDERSTAND WRITTEN INSTRUCTIONS AVERAGE , KNOWLEDGE OF EDUCATIONAL NEEDS/TREATMENT PLAN AVERAGE , HOLINESS? NO , LEARNING PREFERENCE NO PREFERENCE , ORIENTED TO PLAN OF CARE: PATIENT , PAIN MANAGEMENT PATIENT. PAIN CLINIC PFS, CLERGY, PUBLIC HEALTH REFERRALS PFS REFERRAL NEEDED?NO CLERGY REFERRAL NEEDED?NO PUBLIC HEALTH REFERRAL NEEDED?NO WAS THE PROVIDER NOTIFIED OF ANY PERTINENT INFO?YES HAS THE PATIENT BEEN EDUCATED REGARDING HIS/HER PLAN OF CARE?YES HAS THE PATIENT BEEN EDUCATED REGARDING PAIN, THE RISK FOR PAIN, THE IMPORTANCE OF EFFECTIVE PAIN MANAGEMENT, AND THE PAIN ASSESSMENT PROCESS?YES ADVANCE DIRECTIVE ADVANCE DIRECTIVE DISCUSSED WITH PATIENT:YES PT DOES NOT WANT INFO AT THIS TIME REVIEWED WITH PT 04/27/18 1216 BVREVIEWED WITH PT 12/22/18 0945 LASREVIEWED WITH PATIENT 04/18/19 REVIEWED WITH PT05/16/19 1103 NLJ. HOSPITALIZATION/MAJOR DIAGNOSTIC PROCEDURE NO HOSPITALIZATION HISTORY. REVIEW OF SYSTEMS CONSTITUTIONAL: ANY RECENT FEVER NO . CHILLS NO . WEIGHT CHANGE OF UNKNOWN REASONS NO . GASTROENTEROLOGY: NEW UNEXPLAINABLE CHANGES IN BOWEL CONTROL NO . CONSTIPATION NO . GENITOURINARY: ANY NEW CHANGE IN BLADDER CONTROL? NO . NEUROLOGY: NEW ONSET DIZZINESS OR NEUROLOGICAL CHANGES NOT MENTIONED NO . NEW NUMBNESS OR PAIN PATTERNS NOT MENTIONED AND PERTINENT TO TODAY'S VISIT NO . CARDIOLOGY: NEW CHEST PRESSURE NO . NEW CHEST PAIN NO . RESPIRATORY: UNEXPLAINABLE COUGH NO . NEW SHORTNESS OF BREATH NO . VITAL SIGNS WT 240.0 LBS, HT 66 IN, BMI 38.73 INDEX, BP 186/74 MM HG, HR 60 /MIN, RR 18 /MIN, TEMP 97.4 F, OXYGEN SAT % 94%, SAFE IN ENV? (Y/N) YES, NA INITIALS AW 1037, REVIEWED BY: TESSIE. EXAMINATION GENERAL EXAMINATION: LUNGS:WHEEZING WITH DIMINISHED BREATH SOUNDS ALL LOBES BILAT.. HEART:HEART RATE REGULAR. MUSCULOSKELETAL:*, PALPATION: POSITIVE FOR PAIN OVER L/S SPINE. POSITIVE FOR PAIN OVER L/S PARSPINALS. ASSESSMENTS POST LAMINECTOMY SYNDROME - M96.1 (PRIMARY) CHRONIC PRESCRIPTION OPIATE USE - Z79.891 TREATMENT POST LAMINECTOMY SYNDROME REFILL MS CONTIN TABLET EXTENDED RELEASE, 15 MG, 1 TABLET, ORALLY, Q8H MDD3 3 MOS SUPPLY CAT D CHRONIC PAIN, 90 DAY(S), 270, REFILLS 0 REFILL OXYCODONE HCL TABLET, 20 MG, 1 TAB, ORALLY, Q8H PRN PAIN MDD3 90 DAY SUPPLY CAT D CHRONIC PAIN, 90 DAY(S), 270, REFILLS 0 CONTINUE METHOCARBAMOL TABLET, 750 MG, 1 TABLET, ORALLY, 2X PER DAY IF NEEDED NOTES: TODAY, WE HAD A LONG DISCUSSION REGARDING TREATMENT OPTIONS. OVERALL, HE IS COMFORTABLE WITH CURRENT PAIN MEDICATION REGIMEN. REPORTS ABILITY TO ENJOY HIS FREE TIME AND REALIZES THAT HE WILL ALWAYS HAVE SOME PAIN. HE IS AWARE OF OPTIONS. DISPOSITION & COMMUNICATION FOLLOW UP 2 MONTHS (REASON: MED MGMNT/POSTLAMINECTOMY PAIN SYNDROME) ELECTRONICALLY SIGNED BY MEHDI MARROQUIN ON 02/15/2020 AT 01:27 PM EDT DISCLAIMER : THIS IS A VISIT SUMMARY EXTRACTED FROM THE [employer] CHART. IT IS NOT A COPY OF THE [employer] PROGRESS NOTE. MONA
== END ==
LOC: M PAIN 10:30
PROVIDERS: ATTEND Nurse Practitioner Family
DX: M96.1 Postlaminectomy syndrome, not elsewhere classified (principal); Z79.891 Long term (current) use of opiate analgesic; Z79.899 Other long term (current) drug therapy; Z88.8 Allergy status to other drugs, medicaments and biological substances

== ENCOUNTER → 2020-04-18 | Outpatient (CLI) | payer MEDICARE, BC | LOC: M PAIN 10:55 | PROVIDERS: ATTEND Nurse Practitioner Family | DX: M96.1 Postlaminectomy syndrome, not elsewhere classified (principal) ==